=== PATIENT | female | born 1935 | race Caucasian/White ===

== ENCOUNTER 2016-10-02 15:57 | Inpatient (IN) | payer OTHER ==
[~2016-10-02] VITALS: Ht 167.6 cm; Wt 78.6 kg
[~2016-10-02 15:57] MED LIST: AMARYL1 MG PO; ASCORBIC ACID100 MG PO; ATORVASTATIN TAB 20M; BENZONATATE100 MG PO; CARDIZEM CD,CA240 MG PO; CEFDINIR300 MG PO; ELIQUIS5 MG PO; GLIMEPIRIDE 1 MG; GLIMEPIRIDE4 MG PO; GLUCOPHAGE1000 MG PO; JANUVIA100 MG PO; LIPITOR20 MG PO; LISINOPRIL20 MG PO; LOPRESSOR25 MG PO; METFORMIN HCL1000 M1 PO; MUCINEX600 MG PO; OXYBUTYNIN CHLO10 MG PO; PERCOCET 5/31 TABLET PO; TYLENOL WITH C1 EACH PO; VITAMIN D2000 UNI1 PO
[2016-10-02 17:06] LABS: HEMATOCRIT 36.5 % (36.0-46.0); MCH 30.5 PG (29.0-34.0); MCHC 32.3 G/DL (30.0-36.0); MCV 94.3 FL (83-99); MEAN PLAT.VOLUME 11.8 uM^3 (9.5-12.4); PLATELET COUNT 293 K/uL (156-360); RBC DIS.WIDTH-CV 13.3 % (11.8-14.6); RED BLOOD COUNT 3.87 M/uL (3.80-5.20)
[2016-10-02 17:11] LABS: CHLORIDE 104 mEq/L (99-109); POTASSIUM 5.6 mEq/L (3.7-5.4); SODIUM 134 mEq/L (136-147)
[2016-10-02 17:13] LABS: GLUCOSE 282 mg/dL (70-99)
[2016-10-02 17:14] LABS: ANION GAP 13 MEQ/L (2-14)
[2016-10-02 17:16] LABS: GFR ESTIMATE (CALCULATED) 24 mL/min/
[2016-10-02 17:17] LABS: UREA NITROGEN (BUN) 24 mg/dL (9-23)
[2016-10-02] MEDS ORDERED: VITAMIN D2000 UNIT PO (17:22)
[2016-10-02] MEDS ORDERED: VITAMIN C100 MG PO (17:22)
[2016-10-02 17:23] LABS: TROP-I INTERPRETATION NEGATIVE; TROPONIN-I < 0.01 ng/mL (0.0-0.30)
[2016-10-02 17:26] LABS: WHITE BLOOD COUNT 11.7 K/uL (4.1-10.2)
[2016-10-02] MEDS ORDERED: ASCORBIC ACID500 M1 PO (17:26)
[2016-10-02 21:00] VITALS: BP 120/75
[2016-10-02 23:10] LABS: TROP-I INTERPRETATION NEGATIVE; TROPONIN-I < 0.01 ng/mL (0.0-0.30)
[2016-10-02 23:32] LABS: CHLORIDE 108 mEq/L (99-109); POTASSIUM 5.6 mEq/L (3.7-5.4)
[2016-10-02 23:33] LABS: SODIUM 135 mEq/L (136-147)
[2016-10-02 23:34] LABS: GLUCOSE 262 mg/dL (70-99)
[2016-10-02 23:36] LABS: ANION GAP 11 MEQ/L (2-14)
[2016-10-02 23:38] LABS: GFR ESTIMATE (CALCULATED) 25 mL/min/
[2016-10-02 23:39] LABS: UREA NITROGEN (BUN) 25 mg/dL (9-23)
[2016-10-03] VITALS: BP 117/59
[2016-10-03 04:55] VITALS: BP 136/93
[2016-10-03 07:02] LABS: HEMATOCRIT 36.1 % (36.0-46.0); MCH 30.2 PG (29.0-34.0); MCHC 31.9 G/DL (30.0-36.0); MCV 94.8 FL (83-99); MEAN PLAT.VOLUME 11.8 uM^3 (9.5-12.4); PLATELET COUNT 249 K/uL (156-360); RBC DIS.WIDTH-CV 13.8 % (11.8-14.6); RBC DIS.WIDTH-SD 47.9 % (39-53); RED BLOOD COUNT 3.81 M/uL (3.80-5.20)
[2016-10-03 07:03] LABS: WHITE BLOOD COUNT 7.8 K/uL (4.1-10.2)
[2016-10-03 07:13] LABS: ANION GAP 15 MEQ/L (2-14); CHLORIDE 106 MEQ/L (99-109); SAMPLE HEMOLYSIS CHECK 0; SAMPLE ICTERIC CHECK 0; SAMPLE LIPEMIA CHECK 0; SODIUM 141 MEQ/L (136-147); UREA NITROGEN (BUN) 24 mg/dL (9-23)
[2016-10-03 07:15] LABS: GFR ESTIMATE (CALCULATED) 42 mL/min/; GLUCOSE 64 mg/dL (70-99); POTASSIUM 4.4 MEQ/L (3.7-5.4)
[2016-10-03 07:45] VITALS: BP 127/68
[2016-10-03 07:53] LABS: POINT-OF-CARE METER ID UU13113781
[2016-10-03 11:26] LABS: POINT-OF-CARE METER ID UU13113781
[2016-10-03 12:30] VITALS: BP 149/70
[2016-10-03 16:30] VITALS: BP 132/84
[2016-10-03 16:42] LABS: POINT-OF-CARE METER ID UU13113698
[2016-10-03 19:51] VITALS: BP 126/81
[2016-10-03 21:22] LABS: POINT-OF-CARE METER ID UU13113781
[2016-10-04] VITALS (7 sets, daily range): BP systolic 93–133; BP diastolic 40–74
[2016-10-04 06:46] LABS: ANION GAP 12 MEQ/L (2-14); CHLORIDE 105 MEQ/L (99-109); GFR ESTIMATE (CALCULATED) > 59 mL/min/; POTASSIUM 4.3 MEQ/L (3.7-5.4); SAMPLE HEMOLYSIS CHECK 0; SAMPLE ICTERIC CHECK 0; SAMPLE LIPEMIA CHECK 0; SODIUM 140 MEQ/L (136-147); UREA NITROGEN (BUN) 14 mg/dL (9-23)
[2016-10-04 06:48] LABS: GLUCOSE 116 mg/dL (70-99)
[2016-10-04 07:55] LABS: POINT-OF-CARE METER ID UU14174216
[2016-10-04 11:38] LABS: POINT-OF-CARE METER ID UU13113698
[2016-10-04 16:34] LABS: POINT-OF-CARE METER ID UU13113698
[2016-10-05 04:09] VITALS: BP 97/54
[2016-10-05 07:47] VITALS: BP 126/79
[2016-10-05 11:09] LABS: POINT-OF-CARE METER ID UU13113698
[2016-10-05] MEDS ORDERED: LOPRESSOR25 MG PO (11:18)
[2016-10-05 12:20] VITALS: BP 117/82
== END 2016-10-05 16:36 | disposition home or self-care (01) | DRG 683 ==
LOC: EME → EDBD 15:57 → EME 15:57 → 4EAST 18:17 → EDOF 18:17 → 4EAST 20:56
PROVIDERS: Emergency Medicine; Hospitalist; Internal Medicine Critical Care Medicine
DX: N17.9 Acute kidney failure, unspecified (principal); E87.1 Hypo-osmolality and hyponatremia; I95.9 Hypotension, unspecified; I27.2 Other secondary pulmonary hypertension; E11.65 Type 2 diabetes mellitus with hyperglycemia; I48.91 Unspecified atrial fibrillation; R00.1 Bradycardia, unspecified; E78.5 Hyperlipidemia, unspecified; I10 Essential (primary) hypertension; E86.0 Dehydration; Z79.01 Long term (current) use of anticoagulants; Z79.84 Long term (current) use of oral hypoglycemic drugs; I25.10 Atherosclerotic heart disease of native coronary artery without angina pectoris
CPT/HCPCS: 71020; 80048; 80048 91; 81003; 82800; 82948; 83605; 84484; 85027; 93005; 99281; 99285; J1815; J7030; J7050

== ENCOUNTER 2017-01-13 18:56 | Inpatient (IN) | payer OTHER ==
[~2017-01-13] VITALS: Ht 167.6 cm; Wt 75.0 kg
[~2017-01-13 18:56] MED LIST changes: +ASCORBIC ACID500 M1 PO; +VITAMIN C100 MG PO; +VITAMIN D2000 UNIT PO
[2017-01-13 19:36] LABS: HEMATOCRIT 38.6 % (36.0-46.0); MCH 28.7 PG (29.0-34.0); MCHC 32.1 G/DL (30.0-36.0); MCV 89.4 FL (83-99); PLATELET COUNT 212 K/uL (156-360); RBC DIS.WIDTH-CV 14.6 % (11.8-14.6); RBC DIS.WIDTH-SD 47.4 % (39-53); RED BLOOD COUNT 4.32 M/uL (3.80-5.20); WHITE BLOOD COUNT 8.2 K/uL (4.1-10.2)
[2017-01-13 19:55] LABS: CHLORIDE 106 mEq/L (99-109); POTASSIUM 3.9 mEq/L (3.7-5.4); SODIUM 137 mEq/L (136-147)
[2017-01-13 19:58] LABS: ANION GAP 13 MEQ/L (2-14)
[2017-01-13 20:11] LABS: TROP-I INTERPRETATION NEGATIVE; TROPONIN-I < 0.01 ng/mL (0.0-0.30)
[2017-01-13 20:20] LABS: GLUCOSE 65 mg/dL (70-99)
[2017-01-13 20:24] LABS: GFR ESTIMATE (CALCULATED) 51 mL/min/
[2017-01-13 20:25] LABS: UREA NITROGEN (BUN) 21 mg/dL (9-23)
[2017-01-13] MEDS ORDERED: CARTIA XT240 MG PO (21:03)
[2017-01-13 22:24] LABS: ADD MIUA? NO; BILIRUBIN NEGATIVE; BLOOD NEGATIVE; COLOR COLORLESS ((YELLOW)); GLUCOSE (STRIP) NEGATIVE; KETONES NEGATIVE; LEUKOCYTES NEGATIVE; NITRITE NEGATIVE; PROTEIN (STRIP) NEGATIVE; SPECIFIC GRAVITY 1.004 (1.000-1.030); UCUL ADDED? NO; UROBILINOGEN 0.2 MG/DL (0.2-1.0)
[2017-01-13 22:25] LABS: MAGNESIUM 1.4 mg/dL (1.3-2.7)
[2017-01-13 23:10] VITALS: BP 120/77
[2017-01-13 23:13] VITALS: BP 120/77
[2017-01-14 04:52] VITALS: BP 107/73
[2017-01-14 06:27] LABS: ALKALINE PHOSPHATASE 73 IU/L (3-129); ANION GAP 15 MEQ/L (2-14); CHLORIDE 101 MEQ/L (99-109); GFR ESTIMATE (CALCULATED) 57 mL/min/; MAGNESIUM 1.4 mg/dl (1.3-2.7); POTASSIUM 4.3 MEQ/L (3.7-5.4); SAMPLE HEMOLYSIS CHECK 0; SAMPLE ICTERIC CHECK 0; SAMPLE LIPEMIA CHECK 0; SODIUM 139 MEQ/L (136-147); TOTAL BILIRUBIN 0.8 MG/DL (0.0-1.0); UREA NITROGEN (BUN) 20 mg/dL (9-23)
[2017-01-14 06:47] LABS: GLUCOSE 85 mg/dL (70-99)
[2017-01-14 07:45] VITALS: BP 107/65
[2017-01-14 08:12] LABS: POINT-OF-CARE METER ID UU13113781; POINT-OF-CARE USER ID NUTSLF44
[2017-01-14 08:55] LABS: TROP-I INTERPRETATION NEGATIVE; TROPONIN-I 0.01 ng/mL (0.0-0.30)
[2017-01-14 11:30] VITALS: BP 113/68
[2017-01-14 11:57] LABS: POINT-OF-CARE METER ID UU14174216; POINT-OF-CARE USER ID NUTSLF44
[2017-01-14 15:30] VITALS: BP 110/65
[2017-01-14 16:58] LABS: POINT-OF-CARE USER ID NUTSLF44
[2017-01-14 20:08] VITALS: BP 122/63
[2017-01-14 20:28] LABS: POINT-OF-CARE METER ID UU13113781
[2017-01-14 23:25] VITALS: BP 105/55
[2017-01-15 04:10] VITALS: BP 116/68
[2017-01-15 07:11] LABS: ANION GAP 13 MEQ/L (2-14); CHLORIDE 101 MEQ/L (99-109); GFR ESTIMATE (CALCULATED) > 59 mL/min/; GLUCOSE 100 mg/dL (70-99); POTASSIUM 3.9 MEQ/L (3.7-5.4); SAMPLE HEMOLYSIS CHECK 0; SAMPLE ICTERIC CHECK 0; SAMPLE LIPEMIA CHECK 0; SODIUM 137 MEQ/L (136-147); UREA NITROGEN (BUN) 23 mg/dL (9-23)
[2017-01-15 08:15] VITALS: BP 125/66
[2017-01-15] MEDS ORDERED: LOPRESSOR25 MG PO (11:48)
[2017-01-15 11:59] VITALS: BP 104/58
== END 2017-01-15 13:10 | disposition home or self-care (01) | DRG 309 ==
LOC: EME 18:56 → 4EAST 21:28 → EDOF 21:28 → 4EAST 22:48
PROVIDERS: Emergency Medicine; Physician Assistant Medical; Student in an Organized Health Care Education/Training Program
DX: I48.2 Chronic atrial fibrillation (principal); I13.0 Hypertensive heart and chronic kidney disease with heart failure and stage 1 through stage 4 chronic kidney disease, or unspecified chronic kidney disease; I27.2 Other secondary pulmonary hypertension; I12.9 Hypertensive chronic kidney disease with stage 1 through stage 4 chronic kidney disease, or unspecified chronic kidney disease; I08.1 Rheumatic disorders of both mitral and tricuspid valves; Z79.01 Long term (current) use of anticoagulants; J45.20 Mild intermittent asthma, uncomplicated; E78.5 Hyperlipidemia, unspecified; E11.649 Type 2 diabetes mellitus with hypoglycemia without coma; Z87.891 Personal history of nicotine dependence; M19.90 Unspecified osteoarthritis, unspecified site; E11.22 Type 2 diabetes mellitus with diabetic chronic kidney disease; N18.3 Chronic kidney disease, stage 3 (moderate); I50.9 Heart failure, unspecified
CPT/HCPCS: 71020; 80048; 80053; 81003; 82948; 83735; 83880; 84484; 85027; 93005; 99281; 99285; J1940; J3475; J7050

== ENCOUNTER 2017-02-05 10:56 | Day surgery (SDC) | payer OTHER ==
[~2017-02-05] VITALS: Ht 167.6 cm; Wt 78.0 kg
[~2017-02-05 10:56] MED LIST changes: +CARTIA XT240 MG PO; +FUROSEMIDE20 MG PO
[2017-02-05 11:32] LABS: POINT-OF-CARE METER ID UU13113696
== END 2017-02-05 13:38 | disposition home or self-care (01) ==
LOC: CATH 10:56
PROVIDERS: Internal Medicine Cardiovascular Disease
PROC: 5A2204Z Restoration of Cardiac Rhythm, Single (ICD-10-PCS; principal; 2017-02-05)
DX: I48.1 Persistent atrial fibrillation (principal); Z79.01 Long term (current) use of anticoagulants; I10 Essential (primary) hypertension; E78.2 Mixed hyperlipidemia; I27.2 Other secondary pulmonary hypertension
CPT/HCPCS: 82948; 93005

== ENCOUNTER 2017-02-05 23:52 | Observation (INO) | payer OTHER ==
[~2017-02-05] VITALS: Ht 167.6 cm; Wt 80.8 kg
[2017-02-06 01:40] LABS: HEMATOCRIT 40.1 % (36.0-46.0); MCHC 31.9 G/DL (30.0-36.0); MCV 90.9 FL (83-99); MEAN PLAT.VOLUME 12.5 uM^3 (9.5-12.4); PLATELET COUNT 192 K/uL (156-360); RBC DIS.WIDTH-CV 14.6 % (11.8-14.6); RBC DIS.WIDTH-SD 49.1 % (39-53); RED BLOOD COUNT 4.41 M/uL (3.80-5.20); WHITE BLOOD COUNT 9.5 K/uL (4.1-10.2)
[2017-02-06 01:51] LABS: CHLORIDE 108 mEq/L (99-109); POTASSIUM 4.1 mEq/L (3.7-5.4); SODIUM 139 mEq/L (136-147)
[2017-02-06 01:52] LABS: CARBON DIOXIDE (BICARBONATE) 20.5 MEQ/L (20-31); INTER. NORMALIZED RATIO 1.2; MAGNESIUM 1.2 mg/dL (1.3-2.7); PROTHROMBIN TIME 12.4 (9.2-11.2); PTT 30.8 (25-32)
[2017-02-06 01:54] LABS: GLUCOSE 264 mg/dL (70-99)
[2017-02-06 01:55] LABS: ANION GAP 13 MEQ/L (2-14)
[2017-02-06 01:56] LABS: TOTAL BILIRUBIN 0.7 mg/dL (0.0-1.0)
[2017-02-06 01:58] LABS: ALKALINE PHOSPHATASE 80 IU/L (3-129); GFR ESTIMATE (CALCULATED) > 59 mL/min/
[2017-02-06 01:59] LABS: UREA NITROGEN (BUN) 14 mg/dL (9-23)
[2017-02-06 02:01] LABS: LIPASE 43 U/L (1.0-51.0); TROP-I INTERPRETATION NEGATIVE; TROPONIN-I < 0.01 ng/mL (0.0-0.30)
[2017-02-06 06:22] VITALS: BP 155/80
[2017-02-06 07:31] VITALS: BP 140/77
[2017-02-06 11:33] VITALS: BP 162/72
[2017-02-06 12:23] LABS: TROP-I INTERPRETATION NEGATIVE; TROPONIN-I < 0.01 ng/mL (0.0-0.30)
[2017-02-06 15:42] VITALS: BP 135/78
[2017-02-06 18:15] LABS: TROP-I INTERPRETATION NEGATIVE; TROPONIN-I < 0.01 ng/mL (0.0-0.30)
[2017-02-06 19:08] VITALS: BP 125/60
[2017-02-06 19:16] LABS: POINT-OF-CARE METER ID UU14162513
[2017-02-06 23:42] VITALS: BP 124/60
[2017-02-07 04:00] VITALS: BP 120/71
[2017-02-07 07:19] LABS: ANION GAP 12 MEQ/L (2-14); CHLORIDE 100 MEQ/L (99-109); GFR ESTIMATE (CALCULATED) > 59 mL/min/; GLUCOSE 147 mg/dL (70-99); MAGNESIUM 1.9 mg/dl (1.3-2.7); SAMPLE HEMOLYSIS CHECK 0; SAMPLE ICTERIC CHECK 0; SAMPLE LIPEMIA CHECK 0; SODIUM 139 MEQ/L (136-147); UREA NITROGEN (BUN) 14 mg/dL (9-23)
[2017-02-07 07:27] LABS: POTASSIUM 3.1 MEQ/L (3.7-5.4)
[2017-02-07 07:52] VITALS: BP 139/77
[2017-02-07] MEDS ORDERED: FUROSEMIDE20 MG PO (09:58)
[2017-02-07] MEDS ORDERED: ENALAPRIL MALEAT5 MG PO (09:58)
[2017-02-07] MEDS ORDERED: K-DUR20 MEQ PO (09:59)
== END 2017-02-07 12:32 | disposition home or self-care (01) ==
LOC: EME 23:52 → EDOF 02-06 05:20 → 5WEST 02-06 06:08
PROVIDERS: Emergency Medicine; Hospitalist; Nurse Practitioner Adult Health
DX: J81.1 Chronic pulmonary edema (principal); R09.02 Hypoxemia; E87.6 Hypokalemia; E11.65 Type 2 diabetes mellitus with hyperglycemia; I27.2 Other secondary pulmonary hypertension; I10 Essential (primary) hypertension; E78.5 Hyperlipidemia, unspecified; Z87.891 Personal history of nicotine dependence
CPT/HCPCS: 71010; 71020; 71250; 80048; 80053; 82803; 82948; 83690; 83735; 83880; 84100; 84484; 85027; 85610; 85730; 93005; 94010; 94640; 99202; 99281; 99285; G0378; J0692; J1940; J2270; J3475; J7050

== ENCOUNTER 2017-02-27 13:10 | Inpatient (IN) | payer OTHER ==
[~2017-02-27] VITALS: Ht 167.6 cm; Wt 77.0 kg
[~2017-02-27 13:10] MED LIST changes: +ENALAPRIL MALEAT5 MG PO; +K-DUR20 MEQ PO
[2017-02-27 13:50] LABS: HEMATOCRIT 40.8 % (36.0-46.0); MCH 28.8 PG (29.0-34.0); MCHC 31.9 G/DL (30.0-36.0); MCV 90.3 FL (83-99); MEAN PLAT.VOLUME 12.7 uM^3 (9.5-12.4); PLATELET COUNT 225 K/uL (156-360); RBC DIS.WIDTH-CV 14.6 % (11.8-14.6); RBC DIS.WIDTH-SD 48.7 % (39-53); RED BLOOD COUNT 4.52 M/uL (3.80-5.20); WHITE BLOOD COUNT 8.4 K/uL (4.1-10.2)
[2017-02-27 13:58] LABS: CHLORIDE 101 mEq/L (99-109); POTASSIUM 4.7 mEq/L (3.7-5.4); SODIUM 137 mEq/L (136-147)
[2017-02-27 14:01] LABS: GLUCOSE 293 mg/dL (70-99)
[2017-02-27 14:02] LABS: ANION GAP 15 MEQ/L (2-14); TOTAL BILIRUBIN 0.7 mg/dL (0.0-1.0)
[2017-02-27 14:04] LABS: ALKALINE PHOSPHATASE 61 IU/L (3-129); GFR ESTIMATE (CALCULATED) 29 mL/min/
[2017-02-27 14:05] LABS: UREA NITROGEN (BUN) 32 mg/dL (9-23)
[2017-02-27 14:06] LABS: DIRECT BILIRUBIN 0.3 mg/dL (0.0-0.3)
[2017-02-27 14:08] LABS: LIPASE 73 U/L (1.0-51.0)
[2017-02-27 14:10] LABS: TROP-I INTERPRETATION NEGATIVE; TROPONIN-I < 0.01 ng/mL (0.0-0.30)
[2017-02-27] MEDS ORDERED: ZYRTEC10 M3 PO (18:45)
[2017-02-27] MEDS ORDERED: CARTIA XT240 MG PO (18:46)
[2017-02-27 18:49] LABS: ADD MIUA? YES; BILIRUBIN NEGATIVE; BLOOD NEGATIVE; COLOR AMBER ((YELLOW)); GLUCOSE (STRIP) NEGATIVE; KETONES 5; LEUKOCYTES SMALL; NITRITE NEGATIVE; PROTEIN (STRIP) 100; SPECIFIC GRAVITY 1.025 (1.000-1.030)
[2017-02-27 19:17] LABS: BACTERIA 2+ /HPF; EPITHELIAL CELLS 2+ /HPF; RED BLOOD CELLS 0-5 /HPF (0-5)
[2017-02-27 19:18] LABS: CASTS NONE SEEN /LPF
[2017-02-27 19:20] LABS: MUCUS 1+ /LPF
[2017-02-27 19:21] LABS: CALCIUM OXALATE CRYSTALS 1+ /HPF; CRYSTALS PRESENT
[2017-02-27 21:06] VITALS: BP 137/97
[2017-02-27 21:08] VITALS: BP 137/97
[2017-02-27 22:53] VITALS: BP 125/58
[2017-02-28 03:45] VITALS: BP 119/58
[2017-02-28 06:07] LABS: HEMATOCRIT 37.1 % (36.0-46.0); MCH 28.6 PG (29.0-34.0); MCHC 31.3 G/DL (30.0-36.0); MCV 91.6 FL (83-99); RBC DIS.WIDTH-CV 14.8 % (11.8-14.6); RBC DIS.WIDTH-SD 49.8 % (39-53); RED BLOOD COUNT 4.05 M/uL (3.80-5.20); WHITE BLOOD COUNT 6.2 K/uL (4.1-10.2)
[2017-02-28 06:36] LABS: ALKALINE PHOSPHATASE 55 IU/L (3-129); ANION GAP 11 MEQ/L (2-14); CHLORIDE 107 MEQ/L (99-109); GFR ESTIMATE (CALCULATED) 57 mL/min/; GLUCOSE 86 mg/dL (70-99); POTASSIUM 4.1 MEQ/L (3.7-5.4); SAMPLE HEMOLYSIS CHECK 0; SAMPLE ICTERIC CHECK 0; SAMPLE LIPEMIA CHECK 0; SODIUM 141 MEQ/L (136-147); TOTAL BILIRUBIN 0.6 MG/DL (0.0-1.0); UREA NITROGEN (BUN) 22 mg/dL (9-23)
[2017-02-28 06:47] LABS: MEAN PLAT.VOLUME 13.1 uM^3 (9.5-12.4); PLAT.SUFFICIENCY DECREASED
[2017-02-28 06:51] LABS: PLATELET COUNT 153 K/uL (156-360)
[2017-02-28 07:00] VITALS: BP 124/75
[2017-02-28 11:26] LABS: POINT-OF-CARE METER ID UU13113781
[2017-02-28 11:39] VITALS: BP 132/79
[2017-02-28 15:56] LABS: POINT-OF-CARE METER ID UU13113781
[2017-02-28 16:07] LABS: TROP-I INTERPRETATION NEGATIVE; TROPONIN-I < 0.01 ng/mL (0.0-0.30)
[2017-02-28 17:38] VITALS: BP 131/87
[2017-02-28 19:03] VITALS: BP 136/79
[2017-02-28 21:21] LABS: POINT-OF-CARE METER ID UU13113781
[2017-02-28 23:48] VITALS: BP 121/73
[2017-03-01 04:34] VITALS: BP 137/78
[2017-03-01 07:00] VITALS: BP 121/85
[2017-03-01 13:08] VITALS: BP 132/80
[2017-03-01] MEDS ORDERED: CARTIA XT240 MG PO (14:57)
[2017-03-01] MEDS ORDERED: LOPRESSOR25 MG PO (14:58)
[2017-03-01] MEDS ORDERED: AUGMENTIN500 MG PO (15:17)
== END 2017-03-01 15:55 | disposition home health service (06) | DRG 918 ==
LOC: EME → EDBD 13:10 → EDOF 19:55 → 4EAST 19:55
PROVIDERS: Emergency Medicine; Hospitalist; Internal Medicine; Internal Medicine Cardiovascular Disease
DX: T46.1X1A Poisoning by calcium-channel blockers, accidental (unintentional), initial encounter (principal); R00.1 Bradycardia, unspecified; I95.2 Hypotension due to drugs; I48.0 Paroxysmal atrial fibrillation; I10 Essential (primary) hypertension; E78.00 Pure hypercholesterolemia, unspecified; E11.8 Type 2 diabetes mellitus with unspecified complications; I27.2 Other secondary pulmonary hypertension; N17.9 Acute kidney failure, unspecified; E86.0 Dehydration; Z87.891 Personal history of nicotine dependence; E78.5 Hyperlipidemia, unspecified; N39.0 Urinary tract infection, site not specified; B95.2 Enterococcus as the cause of diseases classified elsewhere
CPT/HCPCS: 71020; 80048; 80053; 80076; 81003; 82948; 83605; 83690; 84484; 85027; 87040; 87077; 87086; 87086 GA; 87186; 93005; 99281; 99285; J0696; J1815; J7030; J7050

== ENCOUNTER → 2017-09-22 | Outpatient (CLI) | payer OTHER ==
[~2017-09-22] MED LIST changes: +AMIODARONE HCL200 MG PO; +AUGMENTIN500 MG PO; +ZYRTEC10 M3 PO
== END | disposition home or self-care (01) ==
LOC: AMB 08:24
DX: L11.0 Acquired keratosis follicularis (principal)
CPT/HCPCS: 88305